=== PATIENT | male | born 2000 | race American Indian/Alaskan Native ===

== ENCOUNTER 2018-07-09 10:06 | Day surgery (SDC) | payer OTHER ==
[2018-07-09] MEDS ORDERED: LACTATED RINGERS 1,000 ML IV SCH (11:00)
[2018-07-09] MEDS ORDERED: ANCEF/STERILE WATER 2 GM/20 ML IV NR (11:00)
--- NOTE | 2018-07-09 11:11 | XRay Report ---
Single view abdomen: History: Kidney stone. Findings: Kidneys are partly obscured by transverse colon filled with stool. No radiopaque calculus or abnormal calcification. No bowel distention. Impression: No definite radiopaque calculi seen.
--- NOTE | 2018-07-09 12:58 | Anesthesia Consultation ---
Anesthesia Consult and Med Hx Date of service: 07/09/18 - Airway Anesthetic Teeth Evaluation: Good ROM Head & Neck: Adequate Mental/Hyoid Distance: Adequate Mallampati Class: Class II Intubation Access Assessment: Good - Pulmonary Exam CTA: Yes - Cardiac Exam Cardiac Exam: RRR - Pre-Operative Health Status ASA Pre-Surgery Classification: ASA2 Proposed Anesthetic Plan: General, MAC
[2018-07-09] MEDS ORDERED: NARCAN 0.4 MG/1 ML IV PRN (12:59)
[2018-07-09] MEDS ORDERED: DEMEROL IV PRN (12:59)
[2018-07-09] MEDS ORDERED: SUBLIMAZE IV PRN (12:59)
[2018-07-09] MEDS ORDERED: ZOFRAN IV PRN (12:59)
[2018-07-09] MEDS ORDERED: DILAUDID IV PRN (12:59)
--- NOTE | 2018-07-09 12:59 | Anesthesia Day of Surgery ---
Anesthesia Day of Surgery - Day of Surgery Patient Examined: Yes Patient H&P Reviewed: Yes Patient is NPO: Yes Beta Blockers: No Cardiac Clearance: No Pulmonary Clearance: No
[2018-07-09] MEDS ORDERED: DILAUDID ONE (13:30)
[2018-07-09] MEDS ORDERED: DIPRIVAN 10 MG/ML IV ONE (13:31)
[2018-07-09] MEDS ORDERED: XYLOCAINE MPF 2% ONE (13:31)
--- NOTE | 2018-07-09 14:30 | Short Stay Summary ---
Short Stay Documentation Date of service: 07/09/18 - History H&P: obtained from office - Allergies and Medications Current Medications: Allergies No Known Allergies Allergy (Unverified 07/09/18 10:27) Home Medications Medication Instructions Recorded Confirmed Last Taken Type No Known Home Medications [No 07/09/18 07/09/18 Unknown History Reported Home Medications] Active Medications Cefazolin Sodium (Ancef/Sterile Water 2 Gm/20 Ml) 2 gm IV PREOP NR Stop: 07/09/18 23:59 Fentanyl (Sublimaze) 50 mcg IV Q5MIN PRN PRN Reason: Pain , Severe (7-10) Hydromorphone HCl (Dilaudid) 0.5 mg IV Q10MIN PRN PRN Reason: Pain , Severe (7-10) Lactated Ringer's (Lactated Ringers) 1,000 mls @ 100 mls/hr IV DIRECT CRISTOFER Last Admin: 07/09/18 11:35 Dose: 100 mls/hr Documented by: Meperidine HCl (Demerol) 25 mg IV ONCE PRN PRN Reason: Shivering Naloxone HCl (Narcan 0.4 Mg/1 Ml) 0.1 mg IV Q2MIN PRN PRN Reason: Res Rate </= 8 or 02 SAT < 92% Ondansetron HCl (Zofran) 4 mg IV ONCE PRN PRN Reason: Nausea And Vomiting - Brief post op/procedure progress note Date of procedure: 07/09/18 Pre-op diagnosis: left renal stone Post-op diagnosis: same Procedure: ESWL Anesthesia: GETA Surgeon: YADY SUMMERS Pathology: none Condition: stable - Hospital course Hospital course: chantel kahn, post op info on chart KUB - no stone on right pt may need CTAP if pain persist - Disposition Condition at discharge: Stable Disposition: DC-01 TO HOME OR SELFCARE Short Stay Discharge Plan Follow up with: PRIMARY CARE, [Primary Care Provider] - 7 Days
[2018-07-09] MEDS ORDERED: LACTATED RINGERS 1,000 ML ONE (14:41)
[2018-07-09] MEDS ORDERED: ZOFRAN ONE (14:41)
--- NOTE | 2018-07-09 14:50 | Operative Report ---
PREOPERATIVE DIAGNOSES: Bilateral kidney stones, left flank pain. POSTOPERATIVE DIAGNOSES: Bilateral kidney stones, left flank pain. PROCEDURE: Left extracorporal shock wave lithotripsy. SURGEON: Eh Harris MD ANESTHESIA: General. ESTIMATED BLOOD LOSS: Minimal. FLUIDS: Crystalloid. COMPLICATIONS: No complications. INDICATIONS: This 17-year-old gentleman seen in the office with left flank pain. Renal ultrasound confirmed two 5 mm stones. ____ was present for the visit. Discussed options. The patient wanted to proceed with surgical intervention. Risks, benefits, and complications were explained. DESCRIPTION OF PROCEDURE: The patient was taken to the operative suite, placed in a supine position. After adequate general anesthesia, his left 5 mm stone was localized in 2 planes using fluoroscopy. Preop implementation manager film also confirmed a similar finding; however, no stone could be appreciated on the right side. Extracorporal shock wave lithotripsy was administered with a maximum kV of 7, 2500 shocks. Renal pause of 5 minutes after 200 shocks was performed. Adequate fragmentation could be appreciated. The patient tolerated the procedure well and was extubated and taken to recovery room. He will go home on [employer]. If his pain persists, we will follow up with a CT of abdomen and pelvis. JOB# [id number] FATMATA/BINDU
[2018-07-09 17:53] VITALS: BP 132/78
== END 2018-07-09 10:07 | disposition home or self-care (01) ==
LOC: OR 10:06 → EEVIPCON 14:45
PROVIDERS: ATTEND Urology
DX: N20.0 Calculus of kidney (principal); Z87.891 Personal history of nicotine dependence; Z98.890 Other specified postprocedural states
CPT/HCPCS: 50590; 74018; J0690; J1170; J2405; J2704; J7120